=== PATIENT | female | born 1960 | race Caucasian/White ===

== ENCOUNTER 2019-05-26 11:02 | Emergency (ER) | payer OTHER ==
[2019-05-26 11:11] VITALS: BP 123/75; PULSE 62; TEMP 98.6; BMI 26.4
--- NOTE | 2019-05-26 11:25 | PDOC ---
History of Present Illness - General Chief Complaint: Pain, Acute Stated Complaint: R SHOULDER MUSCLE PAIN Time Seen by Provider: 05/26/19 11:25 History Source: Patient - History of Present Illness Initial Comments: 05/26/19 11:35 58-year-old female complaining of right shoulder pain since knee replacement surgery on April 24. Denies fall/injury reports pain is worse with movement. Patient reports taking oxycodone for pain with minimal pain relief. Patient with full ROM and no swelling noted. Past History - Travel Traveled outside of the country in the last 30 days: Yes Close contact w/someone who was outside of country & ill: No - Past Medical History Allergies/Adverse Reactions: Allergies Allergy/AdvReac Type Severity Reaction Status Date / Time No Known Allergies Allergy Verified 09/01/15 22:57 Home Medications: Ambulatory Orders Albuterol Sulfate [Proair Hfa -] 2 inh PO BID 09/02/15 Beclomethasone Dipropionate [Qvar] 80 mcg IH BID 09/02/15 Segun/D3/Mag11/Zinc/Grain Trader/Rodrigo/Bor [Caltrate 600+D Plus Tablet] 1 each PO DAILY 12/13 Cholecalciferol (Vitamin D3) [Vitamin D3] 2,000 unit PO DAILY 09/02/15 Cholecalciferol (Vitamin D3) [Vitamin D3] 2,000 unit PO DAILY 09/02/15 Cyanocobalamin (Vitamin B-12) [Vitamin B12] 1,000 mcg PO DAILY 09/02/15 Ferrous Gluconate [Iron] 256 mg PO DAILY 09/02/15 Levothyroxine Sodium [Unithroid] 137 mcg PO DAILY 09/02/15 Montelukast Na [Singulair -] 10 mg PO DAILY 09/02/15 Multivitamins [Multivit ([facility])] 1 tab PO DAILY 09/02/15 Olopatadine HCl [Pataday] 1 drop OU ASDIR PRN 09/02/15 Cefuroxime Axetil [Ceftin -] 500 mg PO Q12H #20 tablet 09/06/15 Guaifenesin/D-Methorphan Hb [Diabetic Tussin Dm -] 5 ml PO Q6H PRN #0 ml Ibuprofen 600 mg PO QID PRN #20 tablet 05/26/19 COPD: Yes Diabetes: Yes Thyroid Disease: Yes - Psycho Social/Smoking Cessation Hx Smoking Status: No Smoking History: Never smoked Have you smoked in the past 12 months: No Number of Cigarettes Smoked Daily: 0 If you are a former smoker, when did you quit?: 2001 Information on smoking cessation initiated: No Hx Alcohol Use: No Drug/Substance Use Hx: No Substance Use Type: None Review of Systems - Review of Systems Able to Perform ROS?: Yes Is the patient limited Turkish proficient: No Constitutional: No: Symptoms Reported, See HPI, Chills, Diaphoresis, Fever, Loss of Appetite, Malaise, Night Sweats, Weakness, Weight Stable, Unintentional Wgt. Loss, Unexplained wgt Loss, Other Musculoskeletal: Yes: Joint Pain (right shoulder pain) *Physical Exam - Vital Signs Last Vital Signs Temp Pulse Resp BP Pulse Ox 98.6 F 62 16 123/75 99 05/26/19 11:08 05/26/19 11:08 05/26/19 11:08 05/26/19 11:08 05/26/19 11:08 - Physical Exam General Appearance: Yes: Appropriately Dressed Extremity: positive: Normal Capillary Refill, Normal Inspection, Normal Range of Motion, Other (able raise arm, able to touch opposite shoulder, no deformity) Integumentary: positive: Normal Color, Dry, Warm Neurologic: positive: Fully Oriented, Alert, Normal Mood/Affect Medical Decision Making - Medical Decision Making 05/26/19 11:37 A: right shoulder pain P: Nsaids. outpatient ortho follow up Discharge - Discharge Information Problems reviewed: Yes Clinical Impression/Diagnosis: Right shoulder pain Qualifiers: Chronicity: acute Qualified Code(s): M25.511 - Pain in right shoulder Condition: Stable Disposition: HOME - Additional Discharge Information Prescriptions: Ibuprofen 600 mg PO QID PRN #20 tablet PRN Reason: Pain - Follow up/Referral - Patient Discharge Instructions Patient Printed Discharge Instructions: DI for Shoulder Pain Additional Instructions: take ibuprofen as prescribed. It is important that he follow-up with orthopedic as soon as possible for further evaluation. Return to the ER for any worsening symptoms. - Post Discharge Activity Work/Back to School Note: Back to Work
[2019-05-26] MEDS ORDERED: IBUPROFEN 400 MG TABLET (FP) PO ONE ×2 (11:34→11:37)
== END 2019-05-26 12:20 | disposition home or self-care (01) ==
LOC: JERFT 11:02
DX: M25.511 Pain in right shoulder (principal); J44.9 Chronic obstructive pulmonary disease, unspecified; E11.9 Type 2 diabetes mellitus without complications; E03.9 Hypothyroidism, unspecified
CPT/HCPCS: 99281-25